=== PATIENT | female | born 1930 | race African-American/Black ===

== ENCOUNTER 2017-08-27 15:52 | Emergency (ER) | payer OTHER ==
[~2017-08-27] VITALS: Ht 167.6 cm; Wt 70.0 kg
[2017-08-27 17:00] VITALS: BP 154/68
== END 2017-08-27 17:00 | disposition home or self-care (01) ==
LOC: ER 16:14
DX: S00.93XA Contusion of unspecified part of head, initial encounter (principal); M25.60 Stiffness of unspecified joint, not elsewhere classified; R51 Headache; V49.50XA Passenger injured in collision with unspecified motor vehicles in traffic accident, initial encounter; Y93.89 Activity, other specified; Y92.410 Unspecified street and highway as the place of occurrence of the external cause; I10 Essential (primary) hypertension; Z88.0 Allergy status to penicillin; Z88.2 Allergy status to sulfonamides
CPT/HCPCS: 99283